=== PATIENT | female | born 1935 | race Caucasian/White ===

== ENCOUNTER 2016-10-24 23:49 | Emergency (ER) | payer SELFPAY ==
[~2016-10-24] VITALS: Ht 152.4 cm; Wt 55.0 kg
[2016-10-24 23:51] VITALS: Ht 152.4 cm; Wt 55.0 kg
--- NOTE | 2016-10-25 03:18 | ERD ---
ER Documentation Chief Complaint Date/Time DATE: 10/25/16 TIME: 03:17 Chief Complaint checking own BP at home w/ high and low readings. no pain/sx's HPI This is a 72-year-old female comes in complaining that she checked her blood pressure and noted that it was high. She denies any symptoms. No chest pain no fevers no chills no nausea no vomiting no headache. She's just she felt blood pressure was high. ROS All systems reviewed and are negative except as per history of present illness. Allergies Allergies: Coded Allergies: No Known Drug Allergies (Verified Allergy, Unknown, 10/24/16) Physical Exam Vitals Vital Signs Date Time Temp Pulse Resp B/P Pulse Ox O2 Delivery O2 Flow Rate FiO2 10/25/16 02:25 144/78 10/24/16 23:51 97.6 76 20 199/93 97 Physical Exam Const: [] Head: Atraumatic Eyes: Normal Conjunctiva ENT: Normal External Ears, Nose and Mouth. Neck: Full range of motion..~ No meningismus. Resp: Clear to auscultation bilaterally Cardio: Regular rate and rhythm, no murmurs Abd: Soft, non tender, non distended. Normal bowel sounds Skin: No petechiae or rashes Back: No midline or flank tenderness Ext: No cyanosis, or edema Neur: Awake and alert Psych: Normal Mood and Affect Procedures/MDM Patient's blood pressure was elevated (>120/80) but appears stable without evidence of hypertension emergency or urgency. The patient was counseled about the risks of hypertension and urged to pursue outpatient monitoring and therapy within a week with their primary care physician. Departure Diagnosis: Primary Impression: Hypertension Hypertension type: essential hypertension Qualified Code: I10 - Essential hypertension Condition: Stable ELENI WARDNiesha Oct 25, 2016 03:18
[2016-10-25 03:28] VITALS: BP 165/85; PULSE 78; RESP 18
== END 2016-10-25 03:28 | disposition home or self-care (01) ==
LOC: E/R 23:49
DX: I10 Essential (primary) hypertension (principal)
CPT/HCPCS: 99282